=== PATIENT | male | born 1990 | race African-American/Black ===

== ENCOUNTER 2021-11-12 19:06 | Emergency (ER) | payer SELFPAY ==
[~2021-11-12] VITALS: Ht 172.7 cm; Wt 98.4 kg
[2021-11-12] MEDS ORDERED: ONDANSETRON ODT4 MG PO (19:56)
[2021-11-12] MEDS ORDERED: MECLIZINE HCL12.5 MG PO (19:56)
[2021-11-12] MEDS ORDERED: ONDANSETRON HCL 4 MG ORAL DISINTEGRATING TAB PO ONE (20:00)
[2021-11-12] MEDS ORDERED: MECLIZINE HCL 12.5 MG TAB PO ONE (20:00)
== END 2021-11-12 20:27 | disposition home or self-care (01) ==
LOC: ER 19:34
DX: R42 Dizziness and giddiness (principal); R11.2 Nausea with vomiting, unspecified
CPT/HCPCS: 99282; J8597